=== PATIENT | male | born 1975 | race Caucasian/White ===

== ENCOUNTER 2023-09-04 11:10 | Emergency (ER) | payer BC, MEDICAID ==
[~2023-09-04] VITALS: Ht 180.3 cm; Wt 106.0 kg
[~2023-09-04 11:10] MED LIST: LEVE750T6 PO; OLAN10TA73 PO; SERT25TA PO
[2023-09-04 12:09] LABS: ALBUMIN 3.8 G/DL (3.4-5.0); ANION GAP 7 (8-16); BLOOD UREA NITROGEN 13 MG/DL (7-18); BUN/CREATININE RATIO 11.8 (10.0-20.0); CALCIUM 9.1 MG/DL (8.5-10.1); CHLORIDE 104 MMOL/L (99-107); GLUCOSE 171 MG/DL (70-104); POTASSIUM 3.9 MMOL/L (3.5-5.1); PRO BRAIN NATRIURETIC PEPTIDE 53 PG/ML (0-125); SODIUM 140 MMOL/L (135-145); TOTAL CARBON DIOXIDE 28.8 MMOL/L (24-32); eCRCL 86 ML/MIN; eGFR 71 ML/MIN
[2023-09-04 14:05] VITALS: TEMP 97.1
[2023-09-04] MEDS ORDERED: METO25TA6 PO (14:08)
[2023-09-04] MEDS ORDERED: ATOR10TA70 PO (14:08)
[2023-09-04] MEDS ORDERED: QUET100T34 PO (14:08)
[2023-09-04] MEDS ORDERED: SACU1TAB PO (14:08)
[2023-09-04] MEDS ORDERED: ASPI81TA30 PO (14:08)
[2023-09-04 15:13] VITALS: BP 126/82; PULSE 71; RESP 17; O2SAT 96
== END 2023-09-04 16:05 | disposition home or self-care (01) ==
LOC: ER 11:10
DX: R41.82 Altered mental status, unspecified (principal); F32.A Depression, unspecified; F15.90 Other stimulant use, unspecified, uncomplicated; F14.90 Cocaine use, unspecified, uncomplicated; Z60.2 Problems related to living alone
CPT/HCPCS: 36415; 70450; 80048; 83880; 84484; 99284